=== PATIENT | male | born 1980 | race Caucasian/White ===

== ENCOUNTER 2017-03-19 20:26 | Emergency (ER) | payer OTHER, MEDICAID ==
[2017-03-19 23:30] VITALS: BP 144/80
== END 2017-03-19 23:30 | disposition home or self-care (01) ==
LOC: ED 20:26
DX: R51 Headache (principal); R03.0 Elevated blood-pressure reading, without diagnosis of hypertension; M41.9 Scoliosis, unspecified; Z86.12 Personal history of poliomyelitis; Z79.899 Other long term (current) drug therapy